=== PATIENT | female | born 1965 | race Hispanic/Latino ===

== ENCOUNTER 2019-11-18 09:56 | Emergency (ER) | payer SELFPAY ==
[2019-11-18] MEDS ORDERED: Ondansetron PF 4 MG/2 ML Vial ONE (10:41)
--- NOTE | 2019-11-18 10:41 | RAD ---
EXAM: Single view of the chest HISTORY: Chest pain and flulike symptoms COMPARISON: None FINDINGS: Single view of the chest shows a normal sized cardiomediastinal silhouette. There is no faraz dence of consolidation, mass, or pleural effusion. The bones are unremarkable. IMPRESSION: No evidence of acute cardiopulmonary disease
[2019-11-18 10:46] LABS: #Lymphocytes 0.9 thou/uL (1.20-3.40); #Monocytes 0.6 thou/uL (0.11-0.59); #Neutrophils 4.6 thou/uL (1.40-6.50); %Basophils 0.6 % (0.0-1.0); %Eosinophils 0.3 % (0.0-10.0); %Lymphocytes 14.4 % (21.0-51.0); %Monocytes 9.7 % (0.0-10.0); %Neutrophils 74.9 % (42.0-75.0); Hemoglobin 12.3 g/dL (12.0-16.0); Mean Corpuscular HGB CONC 34.2 g/dL (32.0-36.0); Mean Corpuscular Volume 93.4 fL (78.0-98.0); Mean Platelet Volume 7.6 fL (7.4-10.4); Platelet Count 193 thou/uL (130-400); Red Blood Cell (RBC) Count 3.85 mill/uL (4.20-5.40); White Blood Cell (WBC) Count 6.2 thou/uL (4.8-10.8)
[2019-11-18 11:14] LABS: ALT (SGPT) 30 U/L (8-55); AST (SGOT) 31 U/L (5-34); Albumin 3.9 g/dL (3.5-5.0); Alkaline Phosphatase 74 U/L (40-110); Anion Gap 12 mmol/L (10-20); BUN (Urea Nitrogen) 12 mg/dL (9.8-20.1); Bilirubin, Total 0.4 mg/dL (0.2-1.2); Calc. Creatinine Clearance 0 mL/min (70-130); Calcium 8.5 mg/dL (7.8-10.44); Carbon Dioxide 26 mmol/L (22-29); Chloride 104 mmol/L (98-107); Estimated GFR-MDRD 83; Globulin 3.8 g/dL (2.4-3.5); Glucose 108 mg/dL (70-105); Lipase 14 U/L (8-78); Potassium 3.5 mmol/L (3.5-5.1); Protein, Total 7.7 g/dL (6.0-8.3); Sodium 138 mmol/L (136-145)
[2019-11-18 12:12] LABS: Bilirubin Negative (Negative); Blood, Urine Trace (Negative); Clarity Turbid (Clear); Glucose, Urine (Dipstick) Normal (Negative); Leukocyte Negative Leu/uL (Negative); Nitrite Negative (Negative); Protein, Urine (Dipstick) 70 mg/dL (Neg-Trace)
[2019-11-18 12:21] LABS: Bacteria/HPF Rare-Few HPF (None Seen)
--- NOTE | 2019-11-18 13:05 | CT ---
CT ANGIOGRAM THORAX WITH CONTRAST: (CTA pulmonary angiogram) DATE: 11/18/2019 HISTORY: 54-year-old female with cough and chest pain TECHNIQUE: IV injection of iodinated contrast. Scan acquisition timing attempted to coincide with iodinated contrast bolus reaching maximal density in pulmonary arteries. 3-D MIP reconstructions. FINDINGS: Pulmonary thromboembolism: None. Lungs: Clear. Pneumothorax: None. Pleural effusion: None. Thoracic aorta: No aneurysm or dissection. Mediastinum: No lymphadenopathy or other mass. Scarlet: No lymphadenopathy or other mass. IMPRESSION: Normal.
== END 2019-11-18 13:51 ==
LOC: ERS 09:56
DX: N12 Tubulo-interstitial nephritis, not specified as acute or chronic (principal); M19.90 Unspecified osteoarthritis, unspecified site; F17.210 Nicotine dependence, cigarettes, uncomplicated
CPT/HCPCS: 71045; 71275; 80053; 81003; 81015; 83690; 84484; 85025; 85379; 87086; 87804; 93005; 94760; 96360; 96361; J2405; J7620